=== PATIENT | female | born 1990 | race Two or more races ===

== ENCOUNTER 2023-10-21 10:47 | Emergency (ER) | payer OTHER ==
[~2023-10-21] VITALS: Ht 165.1 cm; Wt 57.1 kg
[2023-10-21 11:41] LABS: Basophils # (auto) 0 10 ^3/uL (0-0.2); Basophils % (auto) 0.5 % (0.0-2.0); Eosinophils # (auto) 0.1 10 ^3/uL (0-0.8); Eosinophils % (auto) 0.9 % (0.0-7.0); Hematocrit 40.5 % (36.0-46.0); Hemoglobin 13.9 g/dL (12.2-16.2); Lymphocytes # (auto) 2.1 10 ^3/uL (0.4-5.4); Lymphocytes % (auto) 22.2 % (10.0-50.0); Mean Corpuscular Hemoglobin 30.9 pg (28.0-32.0); Mean Corpuscular Hgb Conc. 34.3 g/dL (32.0-36.0); Mean Corpuscular Volume 90.1 fL (80.0-100.0); Monocytes # (auto) 0.6 10 ^3/uL (0-1.3); Monocytes % (auto) 6.1 % (0.0-12.0); Neutrophils # (auto) 6.6 10 ^3/uL (1.6-8.6); Neutrophils % (auto) 70.3 % (37.0-80.0); Nucleated Red Blood Cells % 0.1 %; Red Blood Cells 4.49 10^6/uL (4.0-5.20); Red Cell Distribution Width 13.4 % (11.8-14.3); White Blood Cell 9.4 10^3/uL (4.4-10.8)
[2023-10-21 13:00] LABS: Urine Bacteria None Seen /hpf (None Seen)
[2023-10-21 13:14] LABS: Urine Blood 3+ /uL (Negative); Urine Clarity Turbid (Clear); Urine Color Colorless (Yellow); Urine Protein, UAD 1+ (Negative); Urine Specific Gravity 1.012 (1.001-1.035); Urine Urobilinogen Normal (Negative); Urine WBC 75 /hpf (0 - 5); Urine pH 6.5 (5.0-9.0)
[2023-10-21] MEDS ORDERED: NITR-87 PO (13:30)
[2023-10-21 14:28] VITALS: BP 125/65; PULSE 62; RESP 16; TEMP 98.3; O2SAT 97
== END 2023-10-21 14:30 | disposition home or self-care (01) ==
LOC: ER 10:49
DX: O02.1 Missed abortion (principal); R10.2 Pelvic and perineal pain; O23.41 Unspecified infection of urinary tract in pregnancy, first trimester; N39.0 Urinary tract infection, site not specified; F12.10 Cannabis abuse, uncomplicated; Z3A.01 Less than 8 weeks gestation of pregnancy
CPT/HCPCS: 36415; 76801; 81001; 84702; 85025

== ENCOUNTER → 2023-10-23 | Outpatient (CLI) | payer MEDICAID ==
[~2023-10-23] MED LIST: NITR-87 PO
[2023-10-23 16:26] LABS: Alanine Aminotransferase 26 U/L (7-40); Albumin 4.6 g/dL (3.2-4.8); Alkaline Phosphatase 77 U/L (46-116); Anion Gap 4 (5-15); Aspartate Aminotransferase 13 U/L (13-40); BUN/Creatinine Ratio 18.2 (10.0-20.0); Bilirubin, Total 0.6 mg/dL (0.2-1.0); Blood Urea Nitrogen 10 mg/dL (9-23); Calcium 9.9 mg/dL (8.7-10.4); Carbon Dioxide 28 mmol/L (20-30); Chloride 107 mmol/L (98-107); Glucose 83 mg/dL (74-106); Potassium 4.1 mmol/L (3.5-5.1); Sodium 139 mmol/L (136-145)
== END | disposition home or self-care (01) ==
LOC: LAB 15:29
PROVIDERS: ATTEND Obstetrics & Gynecology
DX: Z34.00 Encounter for supervision of normal first pregnancy, unspecified trimester (principal); Z3A.00 Weeks of gestation of pregnancy not specified
CPT/HCPCS: 36415; 80053; 84702; 86900; 86901

== ENCOUNTER → 2023-12-26 | Outpatient (CLI) | payer MEDICAID ==
[2023-12-26 11:07] LABS: Basophils # (auto) 0.1 10 ^3/uL (0-0.2); Basophils % (auto) 0.6 % (0.0-2.0); Eosinophils # (auto) 0.1 10 ^3/uL (0-0.8); Eosinophils % (auto) 0.6 % (0.0-7.0); Hematocrit 37.3 % (36.0-46.0); Hemoglobin 12.8 g/dL (12.2-16.2); Lymphocytes % (auto) 21.9 % (10.0-50.0); Mean Corpuscular Hemoglobin 31.2 pg (28.0-32.0); Mean Corpuscular Hgb Conc. 34.4 g/dL (32.0-36.0); Mean Corpuscular Volume 90.6 fL (80.0-100.0); Monocytes # (auto) 0.5 10 ^3/uL (0-1.3); Monocytes % (auto) 5.6 % (0.0-12.0); Neutrophils # (auto) 6.4 10 ^3/uL (1.6-8.6); Neutrophils % (auto) 71.3 % (37.0-80.0); Platelet Count (auto) 234 10^3/uL (140-450); Red Blood Cells 4.12 10^6/uL (4.0-5.20); Red Cell Distribution Width 12.8 % (11.8-14.3)
[2023-12-26 11:19] LABS: Amphetamine Screen, Urine Neg (NEGATIVE); Barbiturate Scree,Urine Neg (NEGATIVE); Benzodiazephine Screen, Urine Neg (NEGATIVE); Cocaine Screen, Urine Neg (NEGATIVE); Opiate Scree,Urine Neg (NEGATIVE)
[2023-12-26 11:20] LABS: Cannabinoid Screen, Urine Pos (NEGATIVE); Phencyclidine Screen, Urine Neg (NEGATIVE)
[2023-12-26 11:59] LABS: Thyroid Stimulating Hormone 0.54 uIU/mL (0.55-4.78)
[2023-12-26 12:07] LABS: Beta HCG, Quantitative 97791.8 mIU/mL (1.5-4.2)
[2023-12-27 07:07] LABS: Varicella Zoster IgG Antibody Reactive (Non Reactive)
[2023-12-27 08:06] LABS: RPR Non Reactive (Non Reactive)
[2023-12-27 13:06] LABS: Chlamydia Trachomatis, NAA Negative (Negative); Neisseria gonorrhoeae, NAA Negative (Negative)
== END | disposition home or self-care (01) ==
LOC: LAB 10:09
PROVIDERS: ATTEND Obstetrics & Gynecology
DX: Z11.3 Encounter for screening for infections with a predominantly sexual mode of transmission (principal); N39.0 Urinary tract infection, site not specified; Z3A.00 Weeks of gestation of pregnancy not specified
CPT/HCPCS: 36415; 80307; 83036; 84439; 84443; 84702; 85025; 86592; 86703; 86762; 86787; 86850; 86900; 86901; 87086; 87340; 87902

== ENCOUNTER 2024-05-31 15:35 | Observation (INO) | payer SELFPAY ==
[~2024-05-31] VITALS: Ht 165.1 cm; Wt 66.2 kg
[2024-05-31] MEDS: TERBUTALINE SULFATE 1 MG/ML 1ML VIAL SC SCH (16:31)
[2024-05-31] MEDS ORDERED: PREN-96 PO (17:08)
--- NOTE | 2024-06-01 00:03 | DVHDS2 ---
Discharge Summary Date of Admission May 31, 2024 at 15:35 Date of Discharge: May 31, 2024 Admitting Diagnosis 29 weeks rule out labor Brief Hx & Hospital Course: 29 weeks rule out labor , abd pain Condition at Discharge: Good Final Diagnosis/Problems List Pre term contractions no labor Discharge Disposition: Home Discharge Instruct/Medications Diet: Regular Activity: No Restrictions, As Tolerated Discharge Statement: "Patient was advised to return to the ER or call 911 if any headaches, dizziness, shortness of breath, chest pain, abdominal pain, bleeding, fevers, or worsening of medical condition. Patient was counseled about treatment plan, medications, possible side effects, patientverbalized understanding. All questions were answered to the best of my ability. This discharge took greater then 30 minutes in planning, reviewing documentation, counseling the patient, and discussing with other team members." ASSESSMENT ASSESSMENT Assessment Visit Coding OBGYN Date of Service: Jun 01, 2024 Billing Provider: MARIAN OTERO DO SPECIMEN COLLECTOR Common Visit Codes: 89414-PSO/OBS SAME DATE (LOW), 28243-LOV/OBS SAME DATE (MOD), 54512-USH/OBS SAME DATE (HIGH) SPECIMEN COLLECTOR Procedure Codes: 69304-06- NON-STRESS TEST MARIAN OTERO DO Jun 01, 2024 00:03
== END 2024-05-31 17:48 | disposition home or self-care (01) ==
LOC: LDRP 15:35 → UNDOADMOB 15:35 → LDRP 15:49 → UNDODISOB 17:48
PROVIDERS: ADMIT Obstetrics & Gynecology; ATTEND Obstetrics & Gynecology
DX: O62.9 Abnormality of forces of labor, unspecified (principal); Z98.890 Other specified postprocedural states; Z79.899 Other long term (current) drug therapy; Z3A.29 29 weeks gestation of pregnancy
CPT/HCPCS: 59025; 81002; 94760; 96372; G0378; J3105

== ENCOUNTER → 2024-06-01 | Outpatient (CLI) | payer SELFPAY ==
[~2024-06-01] MED LIST changes: +PREN-96 PO
[2024-06-01 09:58] LABS: Basophils # (auto) 0 10 ^3/uL (0-0.2); Basophils % (auto) 0.2 % (0.0-2.0); Eosinophils # (auto) 0 10 ^3/uL (0-0.8); Eosinophils % (auto) 0.4 % (0.0-7.0); Hematocrit 39.5 % (36.0-46.0); Hemoglobin 13.3 g/dL (12.2-16.2); Lymphocytes # (auto) 1.8 10 ^3/uL (0.4-5.4); Lymphocytes % (auto) 17.5 % (10.0-50.0); Mean Corpuscular Hemoglobin 31.2 pg (28.0-32.0); Mean Corpuscular Hgb Conc. 33.7 g/dL (32.0-36.0); Mean Corpuscular Volume 92.6 fL (80.0-100.0); Monocytes # (auto) 0.5 10 ^3/uL (0-1.3); Monocytes % (auto) 5.1 % (0.0-12.0); Neutrophils # (auto) 7.8 10 ^3/uL (1.6-8.6); Neutrophils % (auto) 76.8 % (37.0-80.0); Nucleated Red Blood Cells % 0.1 %; Platelet Count (auto) 188 10^3/uL (140-450); Red Blood Cells 4.27 10^6/uL (4.0-5.20); Red Cell Distribution Width 13.6 % (11.8-14.3); White Blood Cell 10.2 10^3/uL (4.4-10.8)
[2024-06-01 10:31] LABS: Alanine Aminotransferase 21 U/L (7-40); Albumin 4.2 g/dL (3.2-4.8); Alkaline Phosphatase 83 U/L (46-116); Anion Gap 10 (5-15); BUN/Creatinine Ratio 14.6 (10.0-20.0); Calcium 9.4 mg/dL (8.7-10.4); Carbon Dioxide 23 mmol/L (20-31); Chloride 106 mmol/L (98-107); Glucose 82 mg/dL (74-106); Sodium 139 mmol/L (136-145); Total Protein 6.8 g/dL (5.7-8.2)
[2024-06-01 10:32] LABS: Aspartate Aminotransferase 23 U/L (13-40); Bilirubin, Total 0.4 mg/dL (0.2-1.0)
[2024-06-01 10:34] LABS: Blood Urea Nitrogen 7 mg/dL (9-23)
[2024-06-02 22:06] LABS: Chlamydia Trachomatis, NAA Negative (Negative); Neisseria gonorrhoeae, NAA Negative (Negative)
== END | disposition home or self-care (01) ==
LOC: LAB 09:18
PROVIDERS: ATTEND Obstetrics & Gynecology
DX: Z34.80 Encounter for supervision of other normal pregnancy, unspecified trimester (principal); Z3A.00 Weeks of gestation of pregnancy not specified
CPT/HCPCS: 36415; 80053; 82951; 83036; 85025; 86780; 86850; 86900; 86901

== ENCOUNTER 2024-08-05 06:51 | Inpatient (IN) | payer SELFPAY ==
[~2024-08-05] VITALS: Ht 165.1 cm; Wt 70.3 kg
[2024-08-05] VITALS (15 sets, daily range): BP systolic 85–118; BP diastolic 49–85; PULSE 53–126; RESP 12–18; TEMP 97.5–98.4; O2SAT 94–100
[2024-08-05 07:59] LABS: Basophils # (auto) 0 10 ^3/uL (0-0.2); Basophils % (auto) 0.4 % (0.0-2.0); Eosinophils # (auto) 0.1 10 ^3/uL (0-0.8); Eosinophils % (auto) 0.8 % (0.0-7.0); Hematocrit 40.1 % (36.0-46.0); Hemoglobin 13.6 g/dL (12.2-16.2); Mean Corpuscular Volume 91.2 fL (80.0-100.0); Monocytes # (auto) 0.7 10 ^3/uL (0-1.3); Monocytes % (auto) 5.8 % (0.0-12.0); Neutrophils # (auto) 8.5 10 ^3/uL (1.6-8.6); Platelet Count (auto) 189 10^3/uL (140-450); Red Blood Cells 4.39 10^6/uL (4.0-5.20); Red Cell Distribution Width 14.1 % (11.8-14.3); White Blood Cell 11.3 10^3/uL (4.4-10.8)
[2024-08-05 08:12] LABS: Alanine Aminotransferase 21 U/L (7-40); Anion Gap 9 (5-15); Aspartate Aminotransferase 28 U/L (13-40); BUN/Creatinine Ratio 14.6 (10.0-20.0); Calcium 9.8 mg/dL (8.7-10.4); Carbon Dioxide 23 mmol/L (20-31); Chloride 106 mmol/L (98-107); Glucose 91 mg/dL (74-106); Potassium 4.2 mmol/L (3.5-5.1); Sodium 138 mmol/L (136-145); Total Protein 6.6 g/dL (5.7-8.2)
[2024-08-05 08:13] LABS: Bilirubin, Total 0.7 mg/dL (0.2-1.0)
[2024-08-05 08:14] LABS: INR 0.94 (0.9-1.15); Partial Thromboplastin Time 28.2 SEC (24.5-34.5)
[2024-08-05 08:15] LABS: Alkaline Phosphatase 141 U/L (46-116); Blood Urea Nitrogen 7 mg/dL (9-23)
[2024-08-05 08:16] LABS: Cannabinoid Screen, Urine Pos (NEGATIVE)
[2024-08-05 08:19] LABS: Urine Bacteria FEW /hpf (None Seen); Urine Blood TRACE /uL (Negative); Urine Clarity Ex.Turbid (Clear); Urine Color Light-Orange (Yellow); Urine Mucus FEW (None Seen); Urine Protein, UAD 1+ (Negative); Urine Specific Gravity 1.024 (1.001-1.035); Urine Squamous Epithelial Cell MANY /hpf (<5); Urine Urobilinogen Normal (Negative); Urine WBC 9 /HPF (0-5)
[2024-08-05 08:27] LABS: Amphetamine Screen, Urine Neg (NEGATIVE); Barbiturate Scree,Urine Neg (NEGATIVE); Benzodiazephine Screen, Urine Neg (NEGATIVE); Cocaine Screen, Urine Neg (NEGATIVE); Opiate Scree,Urine Neg (NEGATIVE); Phencyclidine Screen, Urine Neg (NEGATIVE)
--- NOTE | 2024-08-05 08:49 | DVHHP ---
ADMIT DATE: 08/05/2024 CHIEF COMPLAINT: Labor. HISTORY OF PRESENT ILLNESS: The patient is a 34-year-old 2, para 1 with EDC 08/13/2024, estimated gestational age of 38+6/7 weeks, admitted for labor, which was noted to be . The patient has had previous section x 1. She wishes to proceed with repeat section. The patient was originally scheduled for tomorrow, 08/06/2024; however, presented in early labor. PAST MEDICAL HISTORY: None. PAST SURGICAL HISTORY: . SOCIAL HISTORY: None. FAMILY HISTORY: None. OBSTETRIC AND GYNECOLOGIC HISTORY: One section, one miscarriage. ALLERGIES: No known drug allergies. REVIEW OF SYSTEMS: Consistent with HPI. PHYSICAL EXAMINATION: VITAL SIGNS: Stable, afebrile. HEENT: Within normal limits. CARDIOVASCULAR: Regular rate and rhythm. LUNGS: Clear to auscultation. BREASTS: Symmetrical, no masses. ABDOMEN: Gravid, positive heart. PELVIC: cm, 50%, -2. EXTREMITIES: There is no clubbing, cyanosis, or edema. IMPRESSION: * Intrauterine at 38+ weeks in early labor. * Previous section x 1. PLAN: Repeat section. Informed consent was obtained. Risks and complications of surgery including infection, bleeding, hematoma formation, injury to bowel, bladder, surrounding organs, possibility of DVT, pulmonary embolism, and risks of anesthesia discussed with the patient. Options reviewed. All questions answered. The patient fully understands. She wishes to proceed with planned procedure. DO TORSTEN Wood/TAE/ABHISHEK TID: [id number] RECEIPT: [id number]
[2024-08-05] MEDS ORDERED: MORPHINE SULF PF 5 MG/10 ML VIAL ONE (09:01)
[2024-08-05] MEDS ORDERED: oxyTOCIN 10 UNIT/ML 10ML VIAL ONE (09:03)
[2024-08-05] MEDS ORDERED: ePHEDrine SULFATE 50 MG/ML AMP ONE (09:16)
[2024-08-05] MEDS ORDERED: ONDANSETRON HCL 4 MG/2 ML VIAL ONE (09:25)
[2024-08-05] MEDS ORDERED: ceFAZolin 1GM/50ML 50 ML IV SCH (09:45)
[2024-08-05] MEDS ORDERED: ONDANSETRON HCL 4 MG/2 ML VIAL IV PRN (09:45)
[2024-08-05] MEDS ORDERED: MEPERIDINE HCL (25 MG/ML) 1ML VIAL IV PRN (10:30)
[2024-08-05] MEDS ORDERED: KETOROLAC TROMETH 30 MG/ML 1ML VIAL IV PRN (10:30)
[2024-08-05] MEDS ORDERED: ACETAMINOPHEN IV 1000 MG/100ML (10MG/ML) IV PRN (10:30)
[2024-08-05] MEDS ORDERED: DexAMETHasone SOD PHOS 10MG/1ML VIAL INJ IV PRN (10:30)
[2024-08-05] MEDS ORDERED: NALOXONE HCL 0.4 MG/ML VIAL IV PRN (10:30)
[2024-08-05] MEDS ORDERED: HYDROmorphone HCL 2 MG/ML VL/or syr IV PRN ×2 (10:30)
[2024-08-05] MEDS: ceFAZolin 2 GM/D5W50ml 50 ML IV ONE (11:42)
[2024-08-05] MEDS: ONDANSETRON HCL 4 MG/2 ML VIAL IV PRN (11:43)
[2024-08-05] MEDS: ACETAMINOPHEN IV 1000 MG/100ML (10MG/ML) IV PRN (12:05)
[2024-08-05] MEDS: LACTATED RINGER'S 1,000 ML IV SCH (12:07)
--- NOTE | 2024-08-05 12:55 | DVHOP2 ---
Operative Report DATE OF OPERATION:08/05/24 PREOPERATIVE DIAGNOSES: [iup at 38wks in labor,desires rcs,previous csx1] POSTOPERATIVE DIAGNOSES: [same] OPERATION PERFORMED: Repeat Section FINDINGS: [b] infant. Apgars of [9] and [9]. Weight [good ] crying tone. [clear] amniotic fluid. Placenta and three-vessel were intact. Normal tubes, ovaries, and uterus. SURGEON: Sharmaine Cardenas D.O. CARBON PAPER MACHINE OPERATOR: strain technician, celeste]. ANESTHESIOLOGIST: Wyatt madrigal ANESTHESIA: [Duramorph spinal, regional]. COMPLICATIONS: [none]. ESTIMATED BLOOD LOSS: [500] mL. BLOOD PRODUCTS USED: [na]. PROCEDURE IN DETAIL: The patient was taken to the operating room, placed in sitting position, and spinal was placed without difficulty. She was then prepped and draped in a sterile fashion. A low Pfannenstiel incision was made scapel. At this point, it was carried down through the rectus fascia, nicked in the midline, and carried laterally. The rectus muscles were in the midline. Peritoneum was identified and entered with sharp dissection. Vesicouterine peritoneum was taken off the lower uterine segment. A lower uterine transverse incision was made with a scalpel down the chorionic membranes, ruptured with hemostat. Infant was in vertex position. One hand was placed in the lower uterine segment. Head was essentially delivered spontaneously. Nose and mouth were bulb suctioned. Shoulders and torso were delivered without difficulty. Again, pharynx, nose, and mouth were re-suctioned with vigorous crying tone. Cord was cut. The infant was handed off to the awaiting Respiratory. At this point, umbilical blood sample was taken. Placenta was removed. Uterus was exteriorized, cleared off all clots and debris, irrigated, and closed with a double layer of 0-Vicryl. The vesicouterine peritoneum was incorporated into this closure. We had complete hemostasis. EBL was [500] mL. The instrument, lap, and sponge count was correct x1. The uterus was placed back into the peritoneum. The peritoneal cavity was re-inspected and the lower uterine incision with good hemostasis. We closed the peritoneum with running continuous of 2-0 Vicryl. The Rectus Fascia was closed with 0-PDS, running continuous, looped-0. The skin was closed undermined, irrigated, and close with skyler. CONDITION: The patient's and the infant's condition is stable and but guarded. Visit Coding OBGYN Date of Service: August 05, 2024 Billing Provider: SHARMAINE CARDENAS DO TASSEL CLIPPER Common Visit Codes: 24237-IMNDBUA OBS CARE (HIGH) TASSEL CLIPPER Procedure Codes: [id number] DELIVERY ONLY SHARMAINE CARDENAS DO August 05, 2024 12:55
--- NOTE | 2024-08-05 12:56 | POSTOP ---
Post-Operative Note Post-Operative Note Preop Diagnosis iup at 38wsk in labor,desires rcs Postop Diagnosis: same Operation performed rcs Specimen boy,apgars 9-9 Anesthesia: Regional Anesthesiologist: nugyesvin Blood Loss(fluid mgmt) 500ml Surgeon Danni singh Complications & Mgmt none Date 08/05/24 Time 12:55 Visit Coding OBGYN Date of Service: August 05, 2024 Billing Provider: DANNI ELLIOTT DO CARE INFORMATION ASSOCIATE Common Visit Codes: 85598-WZNRKDM OBS CARE (HIGH) CARE INFORMATION ASSOCIATE Procedure Codes: [id number] DELIVERY ONLY DANNI ELLIOTT DO August 05, 2024 12:56
[2024-08-05] MEDS: METOCLOPRAMIDE HCL 5MG/ml INJ 2ml VIAL IV ONE (14:00)
[2024-08-05] MEDS: ceFAZolin 1GM/50ML 50 ML IV SCH (17:05)
[2024-08-05] MEDS: LACT. RINGERS/OXYTOCIN 20UNITS 1,000 ML IV ONE (19:18)
[2024-08-05] MEDS: NALBUPHINE HCL 10 MG/1ml INJECTION SUBCUT ONE (19:18)
[2024-08-05] MEDS: LACTATED RINGER'S 1,000 ML IV ONE (19:18)
[2024-08-05] MEDS: ONDANSETRON HCL 4 MG/2 ML VIAL IV ONE (19:18)
[2024-08-05] MEDS: diphenhdrAMINE HCL 50 MG/1 ML VL IV PRN (19:27)
[2024-08-05 21:05] LABS: Basophils # (auto) 0.1 10 ^3/uL (0-0.2); Basophils % (auto) 0.4 % (0.0-2.0); Eosinophils # (auto) 0 10 ^3/uL (0-0.8); Eosinophils % (auto) 0.2 % (0.0-7.0); Hematocrit 38.2 % (36.0-46.0); Hemoglobin 12.9 g/dL (12.2-16.2); Lymphocytes # (auto) 1.5 10 ^3/uL (0.4-5.4); Lymphocytes % (auto) 10.8 % (10.0-50.0); Mean Corpuscular Hemoglobin 30.9 pg (28.0-32.0); Mean Corpuscular Hgb Conc. 33.9 g/dL (32.0-36.0); Mean Corpuscular Volume 91.2 fL (80.0-100.0); Monocytes # (auto) 0.7 10 ^3/uL (0-1.3); Monocytes % (auto) 4.9 % (0.0-12.0); Neutrophils # (auto) 11.5 10 ^3/uL (1.6-8.6); Neutrophils % (auto) 83.7 % (37.0-80.0); Nucleated Red Blood Cells % 0.1 %; Platelet Count (auto) 187 10^3/uL (140-450); Red Blood Cells 4.19 10^6/uL (4.0-5.20); Red Cell Distribution Width 13.7 % (11.8-14.3); White Blood Cell 13.8 10^3/uL (4.4-10.8)
[2024-08-06] VITALS (12 sets, daily range): BP systolic 95–119; BP diastolic 53–72; PULSE 51–81; RESP 15–20; TEMP 97.6–98.4; O2SAT 96–99
[2024-08-06 06:51] LABS: Basophils # (auto) 0 10 ^3/uL (0-0.2); Basophils % (auto) 0.5 % (0.0-2.0); Eosinophils # (auto) 0.1 10 ^3/uL (0-0.8); Eosinophils % (auto) 0.5 % (0.0-7.0); Hematocrit 37.5 % (36.0-46.0); Hemoglobin 12.9 g/dL (12.2-16.2); Lymphocytes # (auto) 1.9 10 ^3/uL (0.4-5.4); Lymphocytes % (auto) 17.8 % (10.0-50.0); Mean Corpuscular Hemoglobin 31.6 pg (28.0-32.0); Mean Corpuscular Hgb Conc. 34.3 g/dL (32.0-36.0); Mean Corpuscular Volume 92.3 fL (80.0-100.0); Monocytes # (auto) 0.7 10 ^3/uL (0-1.3); Monocytes % (auto) 6.4 % (0.0-12.0); Neutrophils # (auto) 7.8 10 ^3/uL (1.6-8.6); Neutrophils % (auto) 74.8 % (37.0-80.0); Platelet Count (auto) 168 10^3/uL (140-450); Red Blood Cells 4.07 10^6/uL (4.0-5.20); Red Cell Distribution Width 14.3 % (11.8-14.3); White Blood Cell 10.5 10^3/uL (4.4-10.8)
--- NOTE | 2024-08-06 07:12 | DVHPN2 ---
Chief Complaints Patient reports: No new complaints Nursing reports: No new complaints Objective Vitals Vital Signs Date Time Temp Pulse Resp B/P (MAP) Pulse Ox O2 Delivery O2 Flow Rate FiO2 08/06/24 05:00 60 20 97 08/06/24 03:07 98.3 100/58 (72) 98.3 08/05/24 11:00 Room Air 0.0 08/05/24 10:14 100 Medications Current Medications Medications (Trade) Dose Ordered Sig/Vincent Route PRN Reason Start Time Stop Time Status Last Admin Cefazolin Sodium 50 ml @ 100 mls/hr Q8H IV 08/05/24 17:00 08/06/24 09:29 08/06/24 00:34 Diphenhydramine HCl (Benadryl Injection) 25 mg Q4HP PRN IV FOR ITCHING 08/05/24 10:30 08/05/24 19:27 Ketorolac Tromethamine (Toradol Injection) 30 mg Q6HP PRN IV MODERATE PAIN (4-6 PAIN SCALE) 08/05/24 10:30 08/10/24 10:29 Lactated Ringer's 1,000 ml @ 125 mls/hr Q8H IV 08/05/24 07:30 08/05/24 19:28 Ondansetron HCl (Zofran) 4 mg Q4HP PRN IV NAUSEA / VOMITING 08/05/24 09:45 General: Normal Lungs: Normal Cardiovascular: Normal Abdominal: Soft Musculoskeletal: No Muscle Spasm Extremities: Normal Studies Laboratory Tests 08/06/24 06:18 08/05/24 07:35 Test 08/05/24 07:35 Range/Units Serum Glucose 91 74-106 mg/dL Ass/Plan Assessment s/p rcs Plan supportive crae do pod one order Visit Coding OBGYN Date of Service: August 06, 2024 Billing Provider: DANNI ELLIOTT DO MAINTENANCE INSTRUCTOR Common Visit Codes: [id number] INP/OBS CARE(HIGH) DANNI ELLIOTT DO August 06, 2024 07:12
[2024-08-06] MEDS ORDERED: DOCU-94 PO (07:17)
[2024-08-06] MEDS ORDERED: HYDR-4072 PO (07:17)
[2024-08-06] MEDS ORDERED: IBUP-1456 PO (07:17)
[2024-08-06] MEDS ORDERED: BISACODYL 10 MG RECT SUPP PR PRN (09:30)
[2024-08-06] MEDS ORDERED: HYDROcodone-ACET 5/325MG TAB PO PRN (09:30)
[2024-08-06] MEDS: IBUPROFEN 800 MG TAB PO PRN (10:37)
[2024-08-06] MEDS: SIMETHICONE 80 MG CHEWABLE TABLET PO SCH (13:17)
[2024-08-06] MEDS: DOCUSATE SOD 100 MG CAP PO SCH (13:17)
[2024-08-06] MEDS: HYDROcodone-ACET 5/325MG TAB PO PRN (21:36)
--- NOTE | 2024-08-07 03:13 | DVHPN2 ---
Chief Complaints Patient reports: No new complaints Nursing reports: No new complaints Objective Vitals Vital Signs Date Time Temp Pulse Resp B/P (MAP) Pulse Ox O2 Delivery O2 Flow Rate FiO2 08/06/24 23:30 98.2 72 16 110/68 (82) 96 98.2 08/06/24 19:30 Room Air 08/05/24 11:00 0.0 08/05/24 10:14 100 Medications Current Medications Medications (Trade) Dose Ordered Sig/Vincent Route PRN Reason Start Time Stop Time Status Last Admin Acetaminophen/ Hydrocodone Bitart ([place] 5/325MG Tab) 1 tab Q4HPRN PRN PO FOR PAIN 1-6 08/06/24 09:30 08/06/24 21:36 Acetaminophen/ Hydrocodone Bitart ([place] 5/325MG Tab) 2 tab Q4HPRN PRN PO FOR PAIN 7-10 08/06/24 09:30 Bisacodyl (Dulcolax Suppository) [address] FOR CONSTIPATION 08/06/24 09:30 Dimethicone (Mylicon Tab) 80 mg QID PO 08/06/24 12:00 08/06/24 21:37 Docusate Sodium (Colace Capsule) 100 mg Q12HR PO 08/06/24 10:00 08/06/24 21:36 Ibuprofen (Motrin Tablet) 800 mg Q8HP PRN PO BREAKTHROUGH PAIN 08/06/24 09:30 08/06/24 19:10 General: Normal Lungs: Normal Cardiovascular: Normal Abdominal: Soft Musculoskeletal: No Muscle Spasm Extremities: Normal Studies Laboratory Tests 08/06/24 06:18 08/05/24 07:35 Test 08/05/24 07:35 Range/Units Serum Glucose 91 74-106 mg/dL Ass/Plan Assessment s/p rcs Plan DC HOME FU THIS WK Visit Coding OBGYN Date of Service: August 07, 2024 Billing Provider: DANNI ELLIOTT DO VALVE SEATER OPERATOR Common Visit Codes: [id number] INP/OBS CARE(HIGH) DANNI ELLIOTT DO August 07, 2024 03:13
--- NOTE | 2024-08-07 03:14 | DVHDS2 ---
Obstetrics Discharge Summary Obstetrics Discharge Summary Date of Admission: August 05, 2024 Date of Discharge: August 07, 2024 Reason For Admission: Onset of Labor Procedures: NST Intrapartum Procedures: (Low Cervical Transverse) Procedures: None Operative Complicat: None Discharge Diagnosis: Delivery Discharge Information: Activity (Other), Diet (Routine), Medications (Name:), Instructions (Routine), Discharge to (Home), Discarge date (08-07) Visit Coding OBGYN Date of Service: August 07, 2024 Billing Provider: DANNI ELLIOTT DO PSYCHOMETRIC EXAMINER Common Visit Codes: [id number] INP/OBS CARE(HIGH), 98023-RVW/OBS DISCH DAY >30MIN DANNI ELLIOTT DO August 07, 2024 03:14
[2024-08-07 03:30] VITALS: BP 107/64; PULSE 79; RESP 16; TEMP 98.7; O2SAT 96
[2024-08-07 07:00] VITALS: BP 103/62; PULSE 75; RESP 18; TEMP 98.3; O2SAT 97
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
[2024-08-07] MEDS: TETANUS-DIPTH-ACEL PERTUSSIS 0.5ML SYR Tdap IM ONE (09:51)
== END 2024-08-07 12:08 | disposition home or self-care (01) | DRG 787 ==
LOC: LDRP 07:10 → OBSVTOIN 07:20 → LDRP 09:09
PROVIDERS: ADMIT Obstetrics & Gynecology; ATTEND Obstetrics & Gynecology
PROC: 10D00Z1 Extraction of Products of Conception, Low, Open Approach (ICD-10-PCS; principal; 2024-08-05 09:04)
DX: O34.211 Maternal care for low transverse scar from previous cesarean delivery (principal); R71.0 Precipitous drop in hematocrit; Z37.0 Single live birth; Z3A.38 38 weeks gestation of pregnancy; O99.344 Other mental disorders complicating childbirth; F41.9 Anxiety disorder, unspecified
CPT/HCPCS: 36415; 80053; 80307; 81001; 85025; 85610; 85730; 86780; 86803; 86850; 86900; 86901; 90715; 94760; 94762; 96360; 96361; 96365; 96372; 96374; 96375; G0378; J0131; J2405; J2590